=== PATIENT | female | born 1950 | race Caucasian/White ===

== ENCOUNTER 2019-05-29 22:28 | Observation (INO) ==
[2019-05-29] MEDS ORDERED: Acetaminophen 325 MG TABLET PO ONE (23:07)
--- NOTE | 2019-05-29 23:09 | Emergency Department Note ---
Disposition Clinical Impression: Talar fracture Qualifiers: Encounter type: initial encounter Fracture type: closed Talus location: neck Fracture alignment: displaced Laterality: left Qualified Code(s): S92.112A - Displaced fracture of neck of left talus, initial encounter for closed fracture Fracture of anterior process of calcaneus Qualifiers: Encounter type: initial encounter Fracture type: closed Fracture alignment: displaced Laterality: left Qualified Code(s): S92.022A - Displaced fracture of anterior process of left calcaneus, initial encounter for closed fracture Disposition: Admitted As Inpatient Condition: Good Referrals: Josue Nevarez DO [Primary Care Provider] - Forms: ED Satisfaction Letter Time of Disposition: 00:23 Lower Extremity Injury HPI - General Chief Complaint: ED Extremity Injury, Lower Stated Complaint: FELL DOWN STEPS RIGHT FOOT AND ANKLE Time Seen by Provider: 05/29/19 22:59 Source: patient Mode of arrival: ambulatory Limitations: no limitations Nursing Notes Reviewed: Yes Vital Signs Reviewed: Yes - History of Present Illness HPI Narrative: Alert and oriented nontoxic-appearing 68-year-old female presents for evaluation of a left foot/ankle injury status post mechanical fall just prior to arrival. She was letting her dog outside and walking down the steps of her back porch when she misstepped and "twisted my ankle". She is unable to describe the exact mechanism of the injury however complains of diffuse left ankle and left hindfoot pain. She does state that she struck her head when she fell. She is on Plavix. She denies any loss of consciousness, visual disturbances, nausea, vomiting, numbness/tingling/weakness of the extremities. She denies any neck pain or back pain. She denies any other injuries. 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 Mechanism of Injury: fall Context: fall Place: street/outdoors Pain Severity: severe Pain Scale: 10 Improves with: immobilization Worsens with: weight bearing, movement, palpation Associated symptoms: Reports: able to partially bear weight - Related Data Home Medications Medication Instructions Recorded Confirmed Albuterol Sulfate [Albuterol 90 mg IH Q4HR PRN 09/20/15 03/16/16 Inhaler] Alendronate Sodium 70 mg PO QWEEK 09/20/15 03/16/16 Aspirin [Adult Low Dose Aspirin EC] 81 mg PO DAILY 09/20/15 03/16/16 Atorvastatin Calcium [Lipitor] 20 mg PO HS 09/20/15 03/16/16 Carvedilol [Coreg] 25 mg PO BID 09/20/15 03/16/16 Clopidogrel [Plavix] 75 mg PO DAILY 09/20/15 03/16/16 Fenofibrate [Lofibra] 160 mg PO HS 09/20/15 03/16/16 Furosemide [Lasix] 40 mg PO DAILY 09/20/15 03/16/16 Nitroglycerin 0.4 mg SL Q5MIN PRN 09/20/15 03/16/16 Cholecalciferol (D-3) [Vitamin D] 5,000 unit PO DAILY 03/16/16 03/16/16 metFORMIN [Glucophage] 500 mg PO BIDWM 03/16/16 03/16/16 raNITIdine HCl [Zantac] 150 mg PO BID 03/16/16 03/16/16 Allergies Allergy/AdvReac Type Severity Reaction Status Date / Time morphine AdvReac Intermediate Vomiting Verified 05/29/19 23:27 All systems ED: reviewed and negative except as stated. Review of Systems: As Per HPI Constitutional: Denies: fever, chills, weakness, weight change Eyes: Denies: eye pain, eye discharge, vision change ENT ED: Denies: ear pain, throat pain, dental pain, hearing loss, epistaxis, congestion, dysphagia Cardiovascular: Denies: chest pain, palpitations, dyspnea on exertion, edema, syncope Respiratory: Denies: cough, dyspnea, wheezes, hemoptysis, stridor Gastrointestinal: Denies: abdominal pain, nausea, vomiting, diarrhea, constipation, hematemesis, melena, hematochezia Genitourinary: Denies: dysuria, frequency, hematuria, discharge Musculoskeletal: Reports: as per HPI, arthralgia (Left ankle injury). Denies: back pain, neck pain, myalgia Integumentary: Denies: rash, abrasion, lesions Neurological: Denies: headache, weakness, numbness, paresthesias, confusion, abnormal gait, vertigo Psychiatric: Denies: anxiety, depression, suicidal thoughts, homicidal thoughts, auditory hallucinations, visual hallucinations Endocrine: Denies: fatigue Hematological/Lymphatic: Denies: easy bleeding, easy bruising Allergic/Immunologic: Denies: facial swelling, urticaria Past Medical History - Past Medical History Attestation: Yes The following information was validated with the patient. Source: patient, nursing notes reviewed Medical history: Reports: COPD, diabetes, hyperlipidemia, hypertension, myocardial infarction Surgical history: Reports: hysterectomy, pacemaker/AICD Psychiatric history: Reports: anxiety - Social History Smoking Status: Former smoker Smokeless Tobacco Status: No Alcohol use: Reports: none Drug use: Reports: none Physical Exam - General Limitations: no limitations General appearance: alert, in no apparent distress - Head Head exam: atraumatic, normocephalic, normal inspection - Expanded Head Exam Head exam physicial: Absent: laceration, abrasion, contusion, hematoma, raccoon eyes, Recinos's sign - Eye Eye exam: Present: normal appearance, PERRL, EOMI. Absent: conjunctival injection - ENT ENT exam: mucous membranes moist - Neck Neck exam: Present: normal inspection, full ROM, trachea midline. Absent: tenderness - Chest Chest inspection: Present: normal inspection, symmetric chest wall rise - Expanded Lower Extremity Exam Knee exam: Present: normal inspection, full ROM. Absent: tenderness Lower leg exam: Present: normal inspection, full ROM. Absent: tenderness Ankle exam: Present: tenderness (Diffuse, left ankle), swelling (Moderate soft tissue swelling noted about the left ankle). Absent: abrasion, ecchymosis, deformity Foot/toe exam: Present: tenderness (Left hindfoot), swelling (Moderate soft tissue swelling of the dorsal aspect of the left hindfoot). Absent: abrasion, laceration, ecchymosis, erythema, puncture wound, calcaneal tenderness, tenderness at base of 5th metatarsal Neurovascular/Tendon exam: Present: normal capillary refill. Absent: pulse deficit, tendon deficit, extremity cold to touch Gait: not tested/not observed - Neurological Exam Neurological exam: Present: alert, oriented X3 - Psychiatric Psychiatric exam: Present: normal affect, normal mood - Skin Skin exam: Present: warm, dry, intact, normal color Course Course Narrative: 0000: I spoke with Dr. Fernandez, physical education aide mooner. He recommends the application of a short leg posterior splint. Given concerns for the patient's ability to ambulate with crutches or a walker/knee walker, he recommends ad mission to the hospital service with in-house podiatry consultation tomorrow morning. The patient is agreeable with this plan. 0040: The patient accepted to the hospital service by Dr. Montenegro. Vital Signs Temperature 97.8 F 05/29/19 22:39 Pulse Rate 90 05/29/19 22:39 Respiratory Rate 16 05/29/19 22:39 Blood Pressure 156/126 05/29/19 22:39 O2 Sat by Pulse Oximetry 95 05/29/19 22:39 Temperature 97.8 F 05/29/19 22:39 Pulse Rate 90 05/29/19 22:39 Respiratory Rate 16 05/29/19 22:39 Blood Pressure 156/126 05/29/19 22:39 O2 Sat by Pulse Oximetry 95 05/29/19 22:39 Oxygen Delivery Oxygen Delivery Room Air Extremity Injury, Lower - Medical Records Medical records reviewed: Yes I reviewed the patient's medical records. - Lab Data Result diagrams: 05/30/19 00:32 Lab Results 05/30/19 Range/Units 00:32 WBC 6.2 (4.3-11.1) K/mcL RBC 4.62 (3.82-4.97) M/mcL Hgb 13.5 (11.5-15.4) g/dL Hct 41.0 (35.3-44.9) % MCV 88.7 (83.0-100.0) fL MCH 29.2 (28.0-33.3) pg MCHC 32.9 (31.6-35.5) g/dL RDW 13.7 (11.5-14.5) % Plt Count 183 (140-400) K/mcL MPV 10.6 (9.4-12.4) fL Immature Gran % 0.5 (0-4) % Seg Neutrophils % 71.3 % Lymphocytes % 18.7 % Monocytes % 7.5 % Eosinophils % 1.5 % Basophils % 0.5 % Neutrophils # 4.4 (1.6-8.9) K/mcL Lymphocytes # 1.2 (0.6-4.6) K/mcL Monocytes # 0.5 (0.0-1.3) K/mcL Eosinophils # 0.1 (0.0-0.6) K/mcL Basophils # 0.0 (0.0-0.2) K/mcL - Radiology Data Radiology results reviewed: Yes I reviewed the patient's radiology results. Ankle X-Ray 05/29/19 23:06 IMPRESSION: Fractures of the dorsal cortex of the talar neck as well as the anterior process of the calcaneus. D/ / Tammy Devine Cha, MD / Tammy Devine Cha, MD Interpreting Provider: Tammy Devine Cha, MD Cervical Spine CT 05/29/19 23:06 IMPRESSION: No acute abnormality of the cervical spine. D/ / Tammy Devine Cha, MD / Tammy Devine Cha, MD Interpreting Provider: Tammy Devine Cha, MD Foot X-Ray 05/29/19 23:06 IMPRESSION: Fractures of the dorsal cortex of the talar neck and anterior process of the calcaneus. D/ / Tammy Devine Cha, MD / Tammy Devine Cha, MD Interpreting Provider: Tammy Devine Cha, MD Head CT 05/29/19 23:06 IMPRESSION: 1. No evidence of acute intracranial abnormality. 2. Subtle area of low attenuation within midline portion of the brainstem/melina. While finding may be artifactual, subtle area of ischemic change, age indeterminate is also a possibility. If clinical symptomatology warrants, short-term follow-up MRI examination may be helpful for more complete evaluation. D/ / Lefty Hernández MD / Lefty Hernández MD Interpreting Provider: Lefty Hernández MD - EKG Data EKG attestation: Yes I reviewed and interpreted this EKG. EKG results narrative: EKG shows a sinus rhythm at a rate of 92 bpm. DC interval 155, QRS duration 102, QT/QTc interval 360/448. No ectopy noted. No ST elevation. No significant ST segment depressions. No significant change in morphology when compared to an EKG dated from 03/16/16.
[2019-05-30 00:44] LABS: Basophils % 0.5 %; Eosinophils # 0.1 K/mcL (0.0-0.6); Eosinophils % 1.5 %; Hemoglobin 13.5 g/dL (11.5-15.4); Immature Granulocytes % 0.5 % (0-4); Lymphocytes # 1.2 K/mcL (0.6-4.6); Lymphocytes % 18.7 %; Mean Corpuscular HGB Conc 32.9 g/dL (31.6-35.5); Mean Corpuscular Hemoglobin 29.2 pg (28.0-33.3); Mean Corpuscular Volume 88.7 fL (83.0-100.0); Mean Platelet Volume 10.6 fL (9.4-12.4); Monocytes # 0.5 K/mcL (0.0-1.3); Monocytes % 7.5 %; Neutrophils # 4.4 K/mcL (1.6-8.9); Platelet Count 183 K/mcL (140-400); Red Blood Count 4.62 M/mcL (3.82-4.97); Red Cell Distribution Width 13.7 % (11.5-14.5); Segmented Neutrophils % 71.3 %; White Blood Count 6.2 K/mcL (4.3-11.1)
[2019-05-30 00:50] LABS: INR 0.9; Prothrombin Time 10.6 Seconds (9.4-12.1)
[2019-05-30 00:53] LABS: Activated Partial Thrombo Time 32.3 Seconds (26.0-36.0)
[2019-05-30 01:00] LABS: BUN/Creatinine Ratio 19 (6-26); Blood Urea Nitrogen 12 mg/dL (8-23); Carbon Dioxide 25 mEq/L (23-29); Chloride 107 mEq/L (98-107); Glucose 232 mg/dL (70-105); Osmolality,Calculated 299 (280-300); Potassium 3.9 mEq/L (3.5-5.1); Sodium 141 mEq/L (136-145); eGFR For African Americans > 60 (> 60); eGFR For Non-African Americans > 60 (> 60)
[2019-05-30 01:01] LABS: Troponin I < 0.03 ng/mL (< 0.04)
[2019-05-30] MEDS: *HR* HYDROcodone/Acet 5/325 mg TABLET PO PRN ×3 (03:31→17:19)
[2019-05-30] MEDS ORDERED: Naloxone 0.4 MG/ML INJ IVP PRN (04:56)
[2019-05-30] MEDS ORDERED: Acetaminophen 325 MG TABLET PO PRN (04:56)
[2019-05-30] MEDS ORDERED: Dextrose Gel 15 GM/37.5 ML TUBE PO PRN ×2 (04:58)
[2019-05-30] MEDS ORDERED: *HR* Dextrose 50 % in Water (Syg) 50 ML SYRINGE IVP PRN (04:58)
[2019-05-30] MEDS ORDERED: D5% in Water 1,000 ML IVC PRN (04:58)
--- NOTE | 2019-05-30 05:56 | Internal Med History&Physical ---
Date of Encounter: 05/30/19 Time of Encounter: 04:44 Internal Medicine - H&P: HPI Chief complaint: Left ankle fracture Admitted From: Emergency Dept Plans for Post Hospital Care: Home History of present illness: Ms. Johnston is a 68 year old female Patient presented to the emergency department after falling down her porch steps. She states that she had been watching TV, and she went to let her dogs outside. She has a wooden porch and upon stepping down the steps she miss stepped, and "twisted" her ankle falling forward and hitting her head on the grass. She heard a popping sound from her left ankle, and was unable to walk after this event. Her dogs were the only witnesses to the fall. She was able to climb back up the steps on all fours, and notify her daughter and who are inside at the time of the accident. She was then transported to the hospital for further evaluation. Emergency department vital signs were within normal limits, patient did have an elevated blood pressure but on repeat set improved without intervention. CBC unremarkable BMP notable for a glucose of 232 Initial troponin undetectable INR 0.9 EKG: Sinus rhythm, rate 92, QTC [address] elevations or depressions. Chest x-ray no acute process Head CT no evidence of acute intracranial abnormality Cervical spine CT: No acute abnormality of the cervical spine Ankle and foot x-ray: Fractures of the dorsal cortex of the talar neck as well as the anterior process of the calcaneus. In the emergency department patient was given a dose of Tylenol and her ankle was placed in a splint. She had initially been readied to be discharged however patient had difficulty with ambulation with crutches and walker. The ER discussed the case with on-call podiatry, and he recommended the patient be admitted and podiatry services will consult on her in the morning. She was admitted to the hospital for further management. Upon my assessment, patient is resting comfortably in hospital bed in no acute distress. She denies chest pain, abdominal pain, nausea, vomiting, diarrhea and constipation. She recalls the incident, and denies losing consciousness. She has no other injuries. She has a history of COPD, diabetes and has a defibrillator placed for history of ischemic cardiomyopathy. She denies significant family medical history. She is a full code. Past Med Surg Social Fam HX - Past Medical History Medical history: arthritis, CHF, COPD, diabetes, hyperlipidemia, hypertension, myocardial infarction Additional medical history: knee injections for arthritis Psychiatric history: anxiety - Past Surgical History Surgical History: hysterectomy, pacemaker/AICD Additional surgical history: tonsilectomy,cardiac stents - Social History Smoking Status: Former smoker Smokeless Tobacco Status: No Alcohol use: none Drug use: none Internal Medicine - H&P: Meds Albuterol Sulfate [Albuterol Inhaler] 90 mg IH Q4HR PRN 09/20/15 [History] Alendronate Sodium 70 mg PO QWEEK 09/20/15 [History] Aspirin [Adult Low Dose Aspirin EC] 81 mg PO DAILY 09/20/15 [History] Atorvastatin Calcium [Lipitor] 20 mg PO HS 09/20/15 [History] Carvedilol [Coreg] 25 mg PO BID 09/20/15 [History] Clopidogrel [Plavix] 75 mg PO DAILY 09/20/15 [History] Fenofibrate [Lofibra] 160 mg PO HS 09/20/15 [History] Furosemide [Lasix] 40 mg PO DAILY 09/20/15 [History] Nitroglycerin 0.4 mg SL Q5MIN PRN 09/20/15 [History] Cholecalciferol (D-3) [Vitamin D] 5,000 unit PO DAILY 03/16/16 [History] metFORMIN [Glucophage] 500 mg PO BIDWM 03/16/16 [History] raNITIdine HCl [Zantac] 150 mg PO BID 03/16/16 [History] Allergy/AdvReac Type Severity Reaction Status Date / Time morphine AdvReac Intermediate Vomiting Verified 05/29/19 23:27 All Systems PM: A 10-system review of systems was performed and is negative for pertinent findings except as documented above in the HPI. - Constitutional Vitals: Temp Pulse Resp BP Pulse Ox 98.2 F 90 16 152/66 95 05/30/19 03:13 05/30/19 03:13 05/30/19 03:13 05/30/19 03:13 05/30/19 03:13 General appearance: Present: cooperative, A&O X 3, pleasant, no acute distress, answers questions appropriately Exam: - - Head Head exam: Present: normal inspection - Eye Eye exam: Present: EOMI, normal appearance - Respiratory Respiratory exam: Present: CTAB. Absent: rales, respiratory distress, rhonchi, wheezes - Cardiovascular Cardiovascular exam: Present: RRR. Absent: diastolic murmur, systolic murmur - GI/Abdominal GI/Abdominal exam: Present: normal bowel sounds, soft. Absent: tenderness - Extremities Exam Extremities exam: Present: tenderness, warm, radial pulses palpable and symmetrical. Absent: calf tenderness, pedal edema Additional comments: Left ankle in splint, elevated. Sensation intact in toes, pain with movement. - Neurological Exam Neurological exam: Present: no focal deficits, strengths equal and symetr throughout. Absent: motor sensory deficit, facial droop, speech deficit - Skin Skin exam: Present: dry, normal color, warm Internal Med - H&P Results - Labs CBC & Chem 7: 05/30/19 00:32 05/30/19 00:32 Labs: Short CBC 05/30/19 Range/Units 00:32 WBC 6.2 (4.3-11.1) K/mcL Hgb 13.5 (11.5-15.4) g/dL Hct 41.0 (35.3-44.9) % Plt Count 183 (140-400) K/mcL Neutrophils # 4.4 (1.6-8.9) K/mcL BMP 05/30/19 00:32 Sodium 141 Potassium 3.9 Chloride 107 Carbon Dioxide 25 BUN 12 Creatinine 0.64 Glucose 232 H Calcium 10.0 Cardiac Enzymes 05/30/19 Range/Units 00:32 Troponin I < 0.03 (< 0.04) ng/mL - Impressions ITS Impressions Ankle X-Ray 05/29/19 23:06 IMPRESSION: Fractures of the dorsal cortex of the talar neck as well as the anterior process of the calcaneus. D/ / Tammy Devine Cha, MD / Tammy Devine Cha, MD Interpreting Provider: Tammy Devine Cha, MD Cervical Spine CT 05/29/19 23:06 IMPRESSION: No acute abnormality of the cervical spine. D/ / Tammy Devine Cha, MD / Tammy Devine Cha, MD Interpreting Provider: Tammy Devine Cha, MD Foot X-Ray 05/29/19 23:06 IMPRESSION: Fractures of the dorsal cortex of the talar neck and anterior process of the calcaneus. D/ / Tammy Devine Cha, MD / Tammy Devine Cha, MD Interpreting Provider: Tammy Devine Cha, MD Head CT 05/29/19 23:06 IMPRESSION: 1. No evidence of acute intracranial abnormality. 2. Subtle area of low attenuation within midline portion of the brainstem/melina. While finding may be artifactual, subtle area of ischemic change, age indeterminate is also a possibility. If clinical symptomatology warrants, short-term follow-up MRI examination may be helpful for more complete evaluation. D/ / Lefty Hernández MD / Lefty Hernández MD Interpreting Provider: Lefty Hernández MD Chest X-Ray 05/30/19 00:09 IMPRESSION: Stable chest without acute process. D/ / Jillian Triplett MD / Jillian Triplett MD Interpreting Provider: Jillian Triplett MD - Assessment and Plan (1) Fracture of anterior process of calcaneus Current Visit: Yes Status: Acute Assessment and plan: Secondary to fall down porch steps. Patient denies any other injuries. She is unable to ambulate even with use of walker and and crutches. Follow-up podiatry recommendations Pain management as needed Continue to monitor Continue to elevate foot in splint. Qualifiers: Encounter type: initial encounter Fracture type: closed Fracture alignment: displaced Laterality: left Qualified Code(s): S92.022A - Displaced fracture of anterior process of left calcaneus, initial encounter for closed fracture (2) Talar fracture Current Visit: Yes Status: Acute Assessment and plan: As above, secondary to fall down porch steps. Podiatry consult in the morning, follow-up recommendations. Pain management as needed Qualifiers: Encounter type: initial encounter Fracture type: closed Talus location: neck Fracture alignment: displaced Laterality: left Qualified Code(s): S92.112A - Displaced fracture of neck of left talus, initial encounter for diego sed fracture (3) Diabetes Current Visit: Yes Status: Acute Assessment and plan: Patient is not an insulin dependent diabetic Monitor sugars ACHS Diabetic diet Low dose insulin sliding scale as needed Hold home meds. Qualifiers: Diabetes mellitus type: type 2 Diabetes mellitus residential insulin use: without residential use Diabetes mellitus complication status: with hyperglycemia Qualified Code(s): E11.65 - Type 2 diabetes mellitus with hyperglycemia (4) DVT prophylaxis Current Visit: Yes Status: Acute Assessment and plan: Subcutaneous heparin - Time Spent With Patient Total time spent is greater than 50% in coordination of care (as documented) at patient's floor/unit and/or counseling patient: Greater than 35 minutes
[2019-05-30 06:23] LABS: Hematocrit 39.4 % (35.3-44.9); Hemoglobin 12.8 g/dL (11.5-15.4); Mean Corpuscular HGB Conc 32.5 g/dL (31.6-35.5); Mean Corpuscular Hemoglobin 28.3 pg (28.0-33.3); Mean Platelet Volume 10.9 fL (9.4-12.4); Platelet Count 172 K/mcL (140-400); Red Blood Count 4.53 M/mcL (3.82-4.97); Red Cell Distribution Width 13.7 % (11.5-14.5); White Blood Count 5.5 K/mcL (4.3-11.1)
[2019-05-30 06:46] LABS: BUN/Creatinine Ratio 19 (6-26); Blood Urea Nitrogen 12 mg/dL (8-23); Calcium 9.6 mg/dL (8.6-10.3); Carbon Dioxide 27 mEq/L (23-29); Chloride 106 mEq/L (98-107); Glucose 117 mg/dL (70-105); Osmolality,Calculated 297 (280-300); Potassium 3.5 mEq/L (3.5-5.1); Sodium 143 mEq/L (136-145); eGFR For African Americans > 60 (> 60); eGFR For Non-African Americans > 60 (> 60)
[2019-05-30] MEDS: Insulin LISPRO 300 UNITS/3 ML VIAL SQ SCH ×3 (07:35→16:32)
[2019-05-30] MEDS: *HR* OxyCODONE Immed Rel 5 MG TABLET PO PRN ×3 (09:19→23:07)
[2019-05-30] MEDS: Famotidine 20 MG TABLET PO SCH ×2 (09:19→19:53)
[2019-05-30] MEDS: Cholecalciferol (D-3) 1,000 UNIT (25MCG) TABLET PO SCH (09:19)
--- NOTE | 2019-05-30 11:00 | Podiatry Consult Note ---
Date of Encounter: 05/30/19 Time of Encounter: 10:52 Assessment and Plan (1) Talar fracture Current visit: Yes Status: Acute Assessment: Fractured dorsal cortex of the talar neck and anterior process of the calcaneus left foot Ecchymosis noted to left foot, mild edema noted, no erythema noted Plan: No plan for surgical intervention and will follow up with patient in outpatient setting Placed patient in splint Called bracing department, patient to be placed in tall CAM walker boot d/t weakness/instability/deformity, must have prior to d/c Weight bearing as tolerated, can use knee scooter as needed for assisted ambulation OK for patient to d/c home when medically stable Recommend d/c with hydrocodone for pain Follow up in outpatient setting with Dr. Fernandez. Please make appointment prior to d/c. Qualifiers: Encounter type: initial encounter Fracture type: closed Talus location: neck Fracture alignment: displaced Laterality: left Qualified Code(s): S92.112A - Displaced fracture of neck of left talus, initial encounter for closed fracture History of Present Illness Chief complaint: Talar fracture HPI: Ms. Johnston is a 68 year old female who fell last evening. Patient is known to the podiatry clinic she follows with Elvira NOLAN. PMH of MS 5 on Plavix, HLD, HTN, CAD with PM/AICD, cardiomyopathy, OA, and DJD. Briefly, patient states she was taking her dogs outside to use the restroom last evening when she tripped and fell down her steps. States she heard a popping sound which caused her to fall forward and hit her head. Reports pain with ambulation stating she had to crawl into the house. Denies any laxity to foot. Reports pain with inversion, eversion, and dorsiflexion. States she has numbness and tingling pain to left foot. No other questions or concerns at this time. Past Med Surg Social Fam HX - Past Medical History Medical history: arthritis, CHF, COPD, diabetes, hyperlipidemia, hypertension, myocardial infarction Additional medical history: knee injections for arthritis Psychiatric history: anxiety - Past Surgical History Surgical History: hysterectomy, pacemaker/AICD Additional surgical history: tonsilectomy,cardiac stents - Social History Smoking Status: Former smoker Smokeless Tobacco Status: No Alcohol use: none Drug use: none Medications and Allergies Albuterol Sulfate [Albuterol Inhaler] 90 mg IH Q4HR PRN 09/20/15 [History] Alendronate Sodium 70 mg PO QWEEK 09/20/15 [History] Aspirin [Adult Low Dose Aspirin EC] 81 mg PO DAILY 09/20/15 [History] Atorvastatin Calcium [Lipitor] 20 mg PO HS 09/20/15 [History] Carvedilol [Coreg] 25 mg PO BID 09/20/15 [History] Clopidogrel [Plavix] 75 mg PO DAILY 09/20/15 [History] Fenofibrate [Lofibra] 160 mg PO HS 09/20/15 [History] Furosemide [Lasix] 40 mg PO DAILY 09/20/15 [History] Nitroglycerin 0.4 mg SL Q5MIN PRN 09/20/15 [History] Cholecalciferol (D-3) [Vitamin D] 5,000 unit PO DAILY 03/16/16 [History] metFORMIN [Glucophage] 500 mg PO BIDWM 03/16/16 [History] raNITIdine HCl [Zantac] 150 mg PO BID 03/16/16 [History] Allergy/AdvReac Type Severity Reaction Status Date / Time morphine AdvReac Intermediate Vomiting Verified 05/29/19 23:27 All Systems Reviewed: The remainder of the systems were reviewed and are negative - Constitutional Constitutional: no fever(s) - Cardiovascular Cardiovascular: pedal edema, no chest pain, no leg edema - Respiratory Respiratory: no cough - Musculoskeletal Musculoskeletal: numbness, tingling Physical Exam - Constitutional Vitals: Temp Pulse Resp BP Pulse Ox 98.1 F 79 16 116/72 96 05/30/19 06:57 05/30/19 06:57 05/30/19 06:57 05/30/19 06:57 05/30/19 06:57 Exam: Constitiutional: Alert and oriented x 3. Well nourished. No acute distress noted Vascular: 1/4 DP/PT LLE, CFT <3 sec to all digits LLE, warm to warm from tibia to toes LLE, no calf pain with squeeze LLE Neurologic: Sensation to touch, normal plantar response Dermatologic: Skin W/D/I. Ecchymosis noted, no fracture blistering noted, no open wound noted, mild edema noted, no erythema noted Musculoskeletal: 3/5 muscle strength and normal tone LLE. Pain with inversion, eversion, and dorisflexion Results - Labs Result Diagrams: 05/30/19 05:54 05/30/19 05:54 Labs: Abnormal lab results Glucose 117 mg/dL (70-105) H 05/30/19 05:54 H & H 05/30/19 05/30/19 Range/Units 00:32 05:54 Hgb 13.5 12.8 (11.5-15.4) g/dL Hct 41.0 39.4 (35.3-44.9) % All other labs normal. - Diagnostic results Ankle/Foot x-ray: report reviewed Consult Discharge Plan - Plan Additional Instructions: Follow up in podiatry clinic 1 week after discharge with Dr. Fernandez Ambulation in CAM walker boot only, as tolerated Referrals: Josue Nevarez DO [Primary Care Provider] -
--- NOTE | 2019-05-30 16:56 | Event Note ---
Date of Encounter: 05/30/19 Time of Encounter: 09:00 Pt seen H & P reviewed Edilberto dischlizzie tomorrow Pain contorl Conservative management
[2019-05-30] MEDS: *HR* Heparin 5,000 UNIT/ML VIAL SQ SCH (17:05)
[2019-05-30] MEDS ORDERED: Fenofibrate 54 MG TABLET PO SCH (21:00)
[2019-05-30] MEDS ORDERED: Insulin LISPRO 300 UNITS/3 ML VIAL SQ SCH (21:00)
--- NOTE | 2019-05-30 23:36 | Electrocardiograph Report ---
[place] [employer] Test Date: 2019-05-30 Pat Name: Bertha Johnston Department: [id number] Room: 3A48 Gender: F [employer] Fe[employer]: : [id number] Requested By: Raffi Sandy Order Number: [id number] Reading MD: Josue Nevarez Measurements Intervals [place] Rate: 92 P: 68 CA: 155 QRS: 64 QRSD: 102 T: 29 QT: 362 QTc: 448 Interpretive Statements Sinus rhythm Anterior infarct, old Electronically Signed On 05-30-2019 23:34:14 EDT by Josue Nevarez
[2019-05-31] MEDS: *HR* HYDROcodone/Acet 5/325 mg TABLET PO PRN ×2 (02:46→09:27)
[2019-05-31] MEDS: *HR* Heparin 5,000 UNIT/ML VIAL SQ SCH (05:27)
[2019-05-31 07:29] VITALS: BP 127/75
[2019-05-31] MEDS: Insulin LISPRO 300 UNITS/3 ML VIAL SQ SCH (09:16)
[2019-05-31] MEDS: Cholecalciferol (D-3) 1,000 UNIT (25MCG) TABLET PO SCH (09:27)
[2019-05-31] MEDS: Famotidine 20 MG TABLET PO SCH (09:27)
--- NOTE | 2019-05-31 09:31 | Discharge Summary ---
- NOTES TO OUTPATIENT PROVIDER Notes to Outpatient Provider: Came with the fall, had fracture of the dorsal cortex of the talar neck as well as the anterior process of the calcaneus. Podiatry recommended conserative mangement and PT. Orders not resulted at time of discharge: Pending orders 05/30/19 00:09 Urinalysis Reflex Cult & Micro [URIN] Stat Date of Encounter: 05/31/19 Time of Encounter: 08:40 - Discharge Diagnosis (1) Talar fracture Priority: Primary Status: Acute Qualifiers: Encounter type: initial encounter Fracture type: closed Talus location: neck Fracture alignment: displaced Laterality: left Qualified Code(s): S92.112A - Displaced fracture of neck of left talus, initial encounter for closed fracture (2) Fracture of anterior process of calcaneus Priority: Secondary Status: Acute Qualifiers: Encounter type: initial encounter Fracture type: closed Fracture alignment: displaced Laterality: left Qualified Code(s): S92.022A - Displaced fracture of anterior process of left calcaneus, initial encounter for closed fracture (3) Diabetes Priority: Secondary Status: Acute Qualifiers: Diabetes mellitus type: type 2 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 Johnston is a 68 year old female with the PMH of COPD, hyperlipidemia, hypertension, [place], prsneted with a mechanical fall. Ankle and foot x-ray: Fractures of the dorsal cortex of the talar neck as well as the anterior process of the calcaneus. Podiatry consulted, recommneded placing pt in splint, walker boot, and conservative management with PT/OT. Pt is currenly HDS and is being dischsarged back to home. Wll give 7 dasy supply or the hydrocodone considering the acute fracture. Advised to follow up with the PCP and podiatry as outpatient. - Time Spent with Patient Total time spent providing and/or coordinating discharge services: 25 minutes - Discharge Medications Prescriptions: New HYDROcodone/Acet 5/325 mg [[place] 5-325 mg] 1 tab PO Q6HR PRN 7 Days #28 tablet PRN Reason: moderate to severe pain Continued metFORMIN [Glucophage] 500 mg PO BIDWM Cholecalciferol (D-3) [Vitamin D] 5,000 unit PO DAILY Alendronate Sodium 70 mg PO QWEEK Nitroglycerin [Nitrostat] 0.4 mg SL AD PRN PRN Reason: Chest Pain Montelukast [Singulair] 10 mg PO DAILY Atorvastatin Calcium [Lipitor] 80 mg PO HS Lisinopril 2.5 mg PO DAILY Furosemide [Lasix] 40 mg PO DAILY Fenofibrate Nanocrystallized [Fenofibrate] 160 mg PO HS Clopidogrel [Plavix] 75 mg PO DAILY Carvedilol [Coreg] 25 mg PO BID BuPROPion XL (24 HR) [Wellbutrin Xl] 150 mg PO DAILY Home Medications: Cholecalciferol (D-3) [Vitamin D] 5,000 unit PO DAILY 03/16/16 [History] metFORMIN [Glucophage] 500 mg PO BIDWM 03/16/16 [History] Alendronate Sodium 70 mg PO QWEEK 05/30/19 [History] Atorvastatin Calcium [Lipitor] 80 mg PO HS 05/30/19 [History] BuPROPion XL (24 HR) [Wellbutrin Xl] 150 mg PO DAILY 05/30/19 [History] Carvedilol [Coreg] 25 mg PO BID 05/30/19 [History] Clopidogrel [Plavix] 75 mg PO DAILY 05/30/19 [History] Fenofibrate Nanocrystallized [Fenofibrate] 160 mg PO HS 05/30/19 [History] Furosemide [Lasix] 40 mg PO DAILY 05/30/19 [History] Lisinopril 2.5 mg PO DAILY 05/30/19 [History] Montelukast [Singulair] 10 mg PO DAILY 05/30/19 [History] Nitroglycerin [Nitrostat] 0.4 mg SL AD PRN 05/30/19 [History] HYDROcodone/Acet 5/325 mg [[place] 5-325 mg] 1 tab PO Q6HR PRN 7 Days #28 tablet 05/31/19 [Rx] Allergies/Adverse Reactions: Allergy/AdvReac Type Severity Reaction Status Date / Time morphine AdvReac Intermediate Vomiting Verified 05/29/19 23:27 Date of admission: 05/30/19 00:55 Primary care physician: Josue Nevarez DO Consults: 05/30/19 00:10 Consult to Podiatry [CONS] Stat Consulting Provider: [facility] Reason for Consult: Talar dome fracture, anterior process of calcaneus fracture Time Notified: 00:10 Call Completed: Yes 05/30/19 07:47 Consult to Physical Therapy [CONS] Routine Comment: Evaluate, develop and implement POC Reason for Consult: Fall Fracture of the left foot. Does patient have active BEDREST order?: No Is patient medically & hemodynamically stable?: Yes 05/30/19 07:48 Consult to Occupational Therapy [CONS] Routine Comment: Evaluate, develop and implement POC Reason for Consult: Fall Fracture of the left ankle Does patient have active BEDREST order?: No Is patient medically & hemodynamically stable?: Yes - Constitutional Vitals: Temp Pulse Resp BP Pulse Ox 98.4 F 82 16 127/75 94 05/31/19 07:23 05/31/19 07:23 05/31/19 07:23 05/31/19 07:23 05/31/19 07:23 General appearance: Present: cooperative, A&O X 3, pleasant, no acute distress, answers questions appropriately Exam: General: Alert and oriented, no physical distress, able to follow commands. HEENT: No thyromegaly, no lymphadenopathy, no discharge. Eyes: No discharge. Normal conjuctiva, no icterus Respiratory: Normal vesicular breathing, no added sounds, breathing equal in both sides. CVS: Normal heart sounds, no murmurs, regular rhthm, no edema Extremities: No peripheral edema, peripheral pulses intact. Left foot in boot, and dressed. Lymph nodes: No lymphadenopathy Gastrointestinal: Soft, nontender abdomen, normal abdominal sounds. No distention noted. Genitourinary: No paravertebral tenderness. Skin: No rash, ulcers or wound. Neurological: Alert and oriented. No focal deficits - Patient Status Disposition: Home Health Service Condition: Good Overall status at discharge: patient is progressing back to baseline - Discharge Instructions Follow Up With: Josue Nevarez DO [Primary Care Provider] - Additional Instructions: Follow up in podiatry clinic 1 week after discharge with Dr[address] Fernandez Ambulation in CAM walker boot only, as tolerated - Diet and Activity Activity: as per physical therapy, increase activity as tolerated Diet: advance to your usual diet
--- NOTE | 2019-05-31 10:10 | Physician Discharge Referral ---
Home Health/Hosp Referral Info Transfer to: Home Health - Diagnosis (1) Talar fracture Priority: Primary Status: Acute (2) Fracture of anterior process of calcaneus Priority: Secondary Status: Acute (3) Diabetes Priority: Secondary Status: Acute (4) DVT prophylaxis Priority: Secondary Status: Acute - Respiratory Orders Smoking Cessation: Smoking cessation has been advised. For more information, call the [place] Tobacco Quit Line at 5-716-EACM-NOW. - Services Needed Following services are medically necessary services: Nursing, Physical Therapy, Occupational Therapy - Transfer Medications Prescriptions: HYDROcodone/Acet 5/325 mg [[place] 5-325 mg] 1 tab PO Q6HR PRN 7 Days #28 tablet PRN Reason: moderate to severe pain Home Medications: Cholecalciferol (D-3) [Vitamin D] 5,000 unit PO DAILY 03/16/16 [History] metFORMIN [Glucophage] 500 mg PO BIDWM 03/16/16 [History] Alendronate Sodium 70 mg PO QWEEK 05/30/19 [History] Atorvastatin Calcium [Lipitor] 80 mg PO HS 05/30/19 [History] BuPROPion XL (24 HR) [Wellbutrin Xl] 150 mg PO DAILY 05/30/19 [History] Carvedilol [Coreg] 25 mg PO BID 05/30/19 [History] Clopidogrel [Plavix] 75 mg PO DAILY 05/30/19 [History] Fenofibrate Nanocrystallized [Fenofibrate] 160 mg PO HS 05/30/19 [History] Furosemide [Lasix] 40 mg PO DAILY 05/30/19 [History] Lisinopril 2.5 mg PO DAILY 05/30/19 [History] Montelukast [Singulair] 10 mg PO DAILY 05/30/19 [History] Nitroglycerin [Nitrostat] 0.4 mg SL AD PRN 05/30/19 [History] HYDROcodone/Acet 5/325 mg [[place] 5-325 mg] 1 tab PO Q6HR PRN 7 Days #28 tablet 05/31/19 [Rx] Allergies/Adverse Reactions: Allergy/AdvReac Type Severity Reaction Status Date / Time morphine AdvReac Intermediate Vomiting Verified 05/29/19 23:27 Certification: Further, I certify that my clinical findings support that this patient is homebound (i.e. absences from home require considerable and taxing effort and are for medical reasons or sikh services or infrequently or short duration when for other reasons) because: Homebound Reason: Patient requires assistance of a person or device to safely leave home Attestation: My signature below is to certify that this patient is under my care and that I, or nurse practitioner, or a physician's community assistant working with me, has a [id number] encounter with this patient.
== END 2019-05-31 13:38 | disposition home health service (06) ==
LOC: 3ANU 22:28 → EMEROOARM 22:28 → SUATTDRO 05-30 00:55 → 3ANU 05-30 03:03
PROVIDERS: ADMIT Pediatrics; ATTEND Internal Medicine